=== PATIENT | male | born 1985 | race African-American/Black ===

== ENCOUNTER 2022-11-22 17:30 | Emergency (ER) | payer BC ==
[2022-11-22] MEDS ORDERED: Fluorescein Opthalmic Strip ONE (20:11)
[2022-11-22] MEDS ORDERED: Proparacaine 0.5% Opth 15 ML BOT ONE (20:11)
[2022-11-22] MEDS ORDERED: Erythromycin Base 0.5% Oint 1 GM TUBE ONE (20:26)
== END 2022-11-22 20:33 | disposition home or self-care (01) ==
LOC: CSHERS 17:30
DX: H10.9 Unspecified conjunctivitis (principal)
CPT/HCPCS: 99282